=== PATIENT | female | born 1970 | race Hispanic/Latino ===

== ENCOUNTER 2019-07-11 | Emergency (ER) | payer OTHER ==
[2019-07-11] MEDS ORDERED: TESSALON PERLE100 MG PO ×2 (13:22→13:24)
[2019-07-11] MEDS ORDERED: PREDNISONE10 MG PO ×2 (13:22→13:24)
== END 2019-07-11 13:30 | disposition home or self-care (01) | DRG 204 ==
DX: R05 Cough (principal); R07.81 Pleurodynia; I10 Essential (primary) hypertension; F17.210 Nicotine dependence, cigarettes, uncomplicated